=== PATIENT | male | born 1980 | race American Indian/Alaskan Native ===

== ENCOUNTER 2021-11-03 10:16 | Outpatient (CLI) | payer OTHER ==
--- NOTE | 2021-11-03 12:06 | XRay Report ---
Bilateral ankles-4 total views INDICATION: BILATERAL ANKLE PAIN. COMPARISON: None available. IMPRESSION: No acute osseous abnormality. Normal alignment. No significant DJD. No bone erosions id entified. Soft tissues are unremarkable. Signer Name: Darnell Rodrigues MD Signed: 11/03/2021 12:02 PM Workstation Name: [id number]
--- NOTE | 2021-11-03 12:07 | XRay Report ---
Bilateral knees-6 total views INDICATION: BILATERAL KNEE PAIN. COMPARISON: None available. IMPRESSION: No acute osseous abnormality. Normal alignment. No significant DJD. No bone erosions id entified. Soft tissues are unremarkable. Signer Name: Darnell Rodrigues MD Signed: 11/03/2021 12:02 PM Workstation Name: [id number]
--- NOTE | 2021-11-03 12:07 | XRay Report ---
Bilateral hands-3 views each INDICATION: BILATERAL HAND PAIN. COMPARISON: None available. IMPRESSION: No acute osseous abnormality. Normal alignment. No significant DJD. No bone erosions id entified. Soft tissues are unremarkable. Signer Name: Darnell Rodrigues MD Signed: 11/03/2021 12:03 PM Workstation Name: [id number]
== END 2021-11-03 10:17 | disposition home or self-care (01) ==
LOC: XRAY 10:16
PROVIDERS: ATTEND Internal Medicine
DX: Z02.71 Encounter for disability determination (principal); M25.562 Pain in left knee; M25.561 Pain in right knee; M25.572 Pain in left ankle and joints of left foot; M25.571 Pain in right ankle and joints of right foot; M25.542 Pain in joints of left hand; M25.541 Pain in joints of right hand